=== PATIENT | female | born 1990 ===

== ENCOUNTER 2023-09-14 14:51 | Outpatient (CLI) | payer BC, MEDICAID, SELFPAY ==
--- NOTE | 2023-09-14 14:57 | USCV_ITS ---
Daiana Chu Age: 33 Gender: F : 1990 Exam Date: 09/14/2023 15:05 Ordering Phys: Radha Lopes Technologist: DOMINGO Exam Location: [facility] [place]_ Indication: LE pain HISTORY: Lower extremity pain. PROCEDURES: Venous duplex imaging was performed in only the left lower extremity. The following venous structures were evaluated: common femoral vein, profunda vein, proximal portion of the greater saphenous vein, superficial femoral vein, and the popliteal vein. In addition, the posterior tibial and peroneal trunk were evaluated. Serial compression, augmentation maneuvers, and spectral Doppler flow evaluation were performed. FINDINGS: Normal 2-D Doppler and augmentation and compressibility throughout the lower extremity venous structures. Additional imaging through the proximal calf veins also reveals no thrombus. Limited evaluation of the greater saphenous vein is patent with no thrombus. CONCLUSIONS No DVT left lower extremity. Dr. Elizabeth Glynn DO (Electronically Signed) Final Date: 14 September 2023 16:01 S
== END 2023-09-14 14:52 | disposition home or self-care (01) ==
PROVIDERS: PCP Family Medicine; Visit Provider Nurse Practitioner Family
DX: M79.662 Pain in left lower leg (principal)
CPT/HCPCS: 93971